=== PATIENT | male | born 1985 | race Caucasian/White ===

== ENCOUNTER 2021-10-07 07:24 | Emergency (ER) | payer OTHER, BC ==
[2021-10-07 07:58] VITALS: BP 132/87; PULSE 65; TEMP 97.9; BMI 26.4
[2021-10-07] MEDS ORDERED: IBUPROFEN 400 MG TABLET (FP) PO ONE (08:07)
== END 2021-10-07 09:14 | disposition home or self-care (01) ==
LOC: JER 07:24
DX: S20.211A Contusion of right front wall of thorax, initial encounter (principal); W11.XXXA Fall on and from ladder, initial encounter
CPT/HCPCS: 71046-TC-FY; 71111-TC-FY; 99283-25